=== PATIENT | male | born 1975 | race Caucasian/White ===

== ENCOUNTER → 2021-08-24 09:48 | Outpatient (BNVA) | payer OTHER, SELFPAY | PROVIDERS: PCP Internal Medicine; Visit Provider Nurse Practitioner Family | DX: R40.0 Somnolence (principal) ==

== ENCOUNTER → 2021-11-08 08:30 | Outpatient (REF) | payer OTHER, SELFPAY | LOC: HO.SL 08:30 | PROVIDERS: PCP Internal Medicine; Visit Provider Nurse Practitioner Family | DX: R06.83 Snoring (principal); R40.0 Somnolence | CPT/HCPCS: 95806 ==